=== PATIENT | female | born 1955 | race Two or more races ===

== ENCOUNTER 2016-12-20 12:33 | Emergency (ER) | payer BC, OTHER ==
[~2016-12-20] VITALS: Ht 152.4 cm; Wt 113.0 kg
[2016-12-20 12:49] VITALS: BP 135/85
[2016-12-20] MEDS ORDERED: OXYC-302 PO (13:17)
[2016-12-20] MEDS ORDERED: METF500T27 PO (13:18)
[2016-12-20] MEDS ORDERED: HYDROmorphone 1 MG/ML, 1ML ONE ×2 (13:43→14:17)
[2016-12-20] MEDS ORDERED: HYDROmorphone 1 MG/ML, 1ML IM ONE ×2 (14:00→14:30)
== END 2016-12-20 14:48 | disposition home or self-care (01) ==
LOC: ED 14:42
DX: G89.29 Other chronic pain (principal); M54.5 Low back pain; E11.9 Type 2 diabetes mellitus without complications; Z88.6 Allergy status to analgesic agent
CPT/HCPCS: 96372; 99284; J1170